=== PATIENT | female | born 1995 | race African-American/Black ===

== ENCOUNTER 2018-05-31 08:25 | Emergency (ER) | payer MEDICAID ==
[~2018-05-31] VITALS: Ht 165.1 cm; Wt 68.2 kg
[2018-05-31 08:28] VITALS: BP 129/72
[2018-05-31] MEDS ORDERED: IBUPROFEN 600 MG TABLET PO ONE (09:00)
== END 2018-05-31 10:04 | disposition home or self-care (01) ==
LOC: EMS 08:26
DX: S93.401A Sprain of unspecified ligament of right ankle, initial encounter (principal); X50.1XXA Overexertion from prolonged static or awkward postures, initial encounter; Y93.89 Activity, other specified; Y92.89 Other specified places as the place of occurrence of the external cause; Y99.8 Other external cause status
CPT/HCPCS: 99284

== ENCOUNTER 2018-06-08 14:43 | Emergency (ER) | payer MEDICAID ==
[~2018-06-08] VITALS: Ht 165.1 cm; Wt 68.2 kg
[2018-06-08] MEDS ORDERED: IBUPROFEN 800 MG TABLET PO ONE (16:30)
[2018-06-08 17:12] VITALS: BP 129/71
== END 2018-06-08 17:15 | disposition home or self-care (01) ==
LOC: EMS 14:44
DX: S93.401A Sprain of unspecified ligament of right ankle, initial encounter (principal); X58.XXXA Exposure to other specified factors, initial encounter; Y93.89 Activity, other specified; Y92.218 Other school as the place of occurrence of the external cause; Y99.0 Civilian activity done for income or pay
CPT/HCPCS: 99283

== ENCOUNTER 2023-12-29 17:02 | Emergency (ER) | payer MEDICAID, OTHER ==
[~2023-12-29] VITALS: Ht 167.6 cm; Wt 71.8 kg
[2023-12-29 17:06] VITALS: TEMP 97.7
[2023-12-29 18:14] VITALS: BP 129/79; PULSE 84; RESP 16
[2023-12-29] MEDS ORDERED: METH-659 PO (20:12)
[2023-12-29] MEDS ORDERED: IBUP-1554 PO (20:12)
[2023-12-29] MEDS ORDERED: ACET-2080 PO (20:12)
== END 2023-12-29 21:14 | disposition home or self-care (01) ==
LOC: EMS 17:08
DX: M48.32 Traumatic spondylopathy, cervical region (principal); Z91.49 Other personal history of psychological trauma, not elsewhere classified; V89.2XXA Person injured in unspecified motor-vehicle accident, traffic, initial encounter; Y93.89 Activity, other specified; Y92.89 Other specified places as the place of occurrence of the external cause; Y99.8 Other external cause status
CPT/HCPCS: 72125; 99285; Z7502